=== PATIENT | male | born 1995 | race Caucasian/White ===

== ENCOUNTER 2022-06-25 08:39 | Emergency (ER) | payer OTHER ==
[~2022-06-25] VITALS: Ht 177.8 cm; Wt 82.0 kg
[2022-06-25] MEDS ORDERED: ONDANSETRON 4MG ODT PO STA (08:56)
[2022-06-25] MEDS ORDERED: FAMOTIDINE 20MG TABLET PO ONE (09:00)
[2022-06-25] MEDS ORDERED: MAGNESIUM/ALUMINUM HYDROXIDE/SIMETHICONE 30ML UDC PO ONE (09:00)
[2022-06-25 09:40] LABS: BASOPHILS % 0.6 % (0.0-2.0); EOSINOPHILS % 0.2 % (0.0-5.0); HEMATOCRIT. 43.4 % (42.0-52.0); HEMOGLOBIN. 14.7 g/dL (14.0-18.0); LYMPHOCYTES % 16.1 % (20.0-50.0); MEAN CORPUSCULAR HEMOGLOBIN 27.7 pg (28.0-32.0); MEAN CORPUSCULAR VOLUME 81.7 fL (80.0-94.0); MEAN PLATELET VOLUME 8.1 fl (7.4-10.4); MONOCYTES % 6.7 % (2.0-8.0); NEUTROPHILS % 76.4 % (40.0-76.0); PLATELET 279 x1000/uL (130-400); RED BLOOD CELL COUNT 5.31 mill/uL (4.7-6.1); RED CELL DISTRIBUTION WIDTH 13.2 % (11.6-14.6)
[2022-06-25 09:47] LABS: CHLORIDE 106 mEq/L (98-107)
[2022-06-25 10:16] LABS: CLARITY URINE CLEAR (CLEAR); COLOR URINE YELLOW (YELLOW); KETONES URINE 1+ (NEGATIVE); LEUKOCYTE ESTERASE URINE NEGATIVE (NEGATIVE); NITRITE URINE NEGATIVE (NEGATIVE); OCCULT BLOOD URINE NEGATIVE (NEGATIVE); PH URINE 6.5 (4.5-8.0); PROTEIN URINE TRACE (NEGATIVE); SPECIFIC GRAVITY URINE 1.033 (1.005-1.030)
[2022-06-25] MEDS ORDERED: FAMOTIDINE 20MG TABLET PO NR (10:45)
[2022-06-25] MEDS ORDERED: ONDANSETRON 4MG ODT PO NR (10:45)
[2022-06-25] MEDS ORDERED: MAGNESIUM/ALUMINUM HYDROXIDE/SIMETHICONE 30ML UDC PO NR (10:45)
[2022-06-25] MEDS ORDERED: FAMO40TA70 MT (10:59)
[2022-06-25] MEDS ORDERED: MAG-55 MT (10:59)
[2022-06-25 11:48] VITALS: BP 124/64
== END 2022-06-25 11:49 | disposition home or self-care (01) ==
LOC: ER 08:39
DX: R11.2 Nausea with vomiting, unspecified (principal); Z87.891 Personal history of nicotine dependence
CPT/HCPCS: 36415; 80053; 81003; 83690; 85025; 99284; Q0162